=== PATIENT | male | born 1965 | race Caucasian/White ===

== ENCOUNTER 2017-04-07 06:10 | Emergency (ER) | payer BC, OTHER ==
[2017-04-07] MEDS ORDERED: Sodium Chloride 0.9% 10 ML Syringe FLUSH PRN (06:31)
--- NOTE | 2017-04-07 07:17 | EDM.PDOC ---
ED HPI GENERAL MEDICAL PROBLEM - General Chief Complaint: Chest Pain Stated Complaint: COUGH DIARRHEA CHEST PAIN Time Seen by Provider: 04/07/17 06:30 Source of Information: Reports: Patient, RN Notes Reviewed - History of Present Illness INITIAL COMMENTS - FREE TEXT/NARRATIVE: 51-year-old male who became ill yesterday with cough, chills, possible low- grade fever. Has had some mild nasal congestion. He has had body aches with this. Cough been primarily nonproductive, very annoying, difficulty sleeping this last night. He has developed some achy discomfort in his anterior chest and then occasional sharp shooting pains. He has no radiation to shoulder or arm or back. He does not feel short of breath. He has no personal history for hypertension, diabetes or known coronary artery disease. He denies family history for coronary artery disease and also does not smoke. Chest Pain Score (Numeric/FACES): 3 - Related Data Allergies Allergy/AdvReac Type Severity Reaction Status Date / Time No Known Allergies Allergy Verified 04/07/17 06:30 Home Meds: Home Meds atorvaSTATin [Lipitor] 40 mg PO DAILY 04/07/17 [History] Past Medical History Cardiovascular History: Reports: High Cholesterol - Past Surgical History Musculoskeletal Surgical History: Reports: Other (See Below) Other Musculoskeletal Surgeries/Procedures:: "neck surgery years ago" Social & Family History - Family History Family Medical History: Noncontributory - Tobacco Use Smoking Status *Q: Never Smoker Second Hand Smoke Exposure: No - Caffeine Use Caffeine Use: Reports: Coffee - Recreational Drug Use Recreational Drug Use: No ED ROS GENERAL - Review of Systems Review Of Systems: See Below Constitutional: Reports: Fever, Chills (Possible low-grade) HEENT: Reports: Rhinitis (Mild). Denies: Throat Pain Respiratory: Reports: Cough, Sputum (Clear). Denies: Shortness of Breath, Wheezing, Pleuritic Chest Pain Cardiovascular: Reports: Chest Pain (He does have some chest pain with coughing , also achy and sharp shooting discomfort of the chest that comes and goes.) GI/Abdominal: Reports: Diarrhea (He's been having loose stools for the last 24 hours.). Denies: Abdominal Pain, Nausea, Vomiting Musculoskeletal: Reports: Other (Diffuse achiness) Skin: Reports: No Symptoms Neurological: Denies: Headache ED EXAM, GENERAL - Physical Exam Exam: See Below General Appearance: Alert, No Apparent Distress Eye Exam: Bilateral Eye: PERRL Throat/Mouth: Normal Inspection Head: No: Facial Swelling Neck: Supple Respiratory/Chest: No Respiratory Distress, Lungs Clear. No: Rhonchi, Wheezing Cardiovascular: Regular Rate, Rhythm GI/Abdominal: Soft, Non-Tender. No: Guarding Extremities: Normal Inspection, Normal Range of Motion. No: Pedal Edema, Leg Pain Neurological: Alert, Oriented, No Motor/Sensory Deficits Skin Exam: Warm, Dry, Normal Color EKG INTERPRETATION EKG Date: 04/07/17 Rhythm: NSR [place]: Normal P-Wave: Present QRS: Normal ST-T: Normal Course - Vital Signs Last Recorded V/S: Last Vital Signs Temp 98.3 F 04/07/17 06:23 Pulse 81 04/07/17 06:23 Resp 16 04/07/17 06:23 BP 138/78 04/07/17 06:23 Pulse Ox 97 04/07/17 06:23 - Orders/Labs/Meds Orders: Active Orders 24 hr Category Date Time Status EKG 12 Lead [EKG Documentation Completion] [RC] STAT Care 04/07/17 06:31 Active Peripheral IV Care [RC] . DIRECTED Care 04/07/17 06:33 Active Chest 1V Frontal [CR] Stat Exams 04/07/17 06:31 Taken Sodium Chloride 0.9% [Saline Flush] Med 04/07/17 06:31 Active 10 ml FLUSH ASDIRECTED PRN Peripheral IV Insertion Adult [OM.PC] Stat Oth 04/07/17 06:31 Ordered Medication Orders Sodium Chloride (Saline Flush) 10 ml FLUSH ASDIRECTED PRN PRN Reason: Keep Vein Open Last Admin: 04/07/17 06:49 Dose: 10 ml Labs: Laboratory Tests 04/07/17 Range/Units 06:47 Troponin I < 0.017 (0.00-0.056) ng/mL Meds: Medications Generic Name Dose Route Start Last Admin Trade Name Freq PRN Reason Stop Dose Admin Sodium Chloride 10 ml 04/07/17 06:31 04/07/17 06:49 Saline Flush FLUSH 10 ml ASDIRECTED PRN Administration Keep Vein Open - Re-Assessments/Exams Free Text/Narrative Re-Assessment/Exam: 04/07/17 07:18. EKG does not show any acute changes. Chest x-ray normal. 04/07/17 07:46. Troponin did come back normal as expected, discharge instructions as documented Departure - Departure Time of Disposition: 07:35 Disposition: Home, Self-Care 01 Condition: Fair Clinical Impression: Atypical chest pain, Influenza A - Discharge Information Referrals: PCP,None [Primary Care Provider] - Forms: ED Department Discharge Additional Instructions: Rest, drink plenty of water to maintain hydration. Vaporizer or steam as needed. Tylenol or ibuprofen as needed for discomfort or for high fever. Symptoms will gradually start resolving over the next 2-3 days. You will likely have a cough or bronchitis for another week or 2. Follow-up clinic if not much better within 2-3 days as expected, return to ED as needed. - My Orders Last 24 Hours: My Active Orders 04/07/17 06:31 EKG 12 Lead [EKG Documentation Completion] [RC] STAT Chest 1V Frontal [CR] Stat Sodium Chloride 0.9% [Saline Flush] 10 ml FLUSH ASDIRECTED PRN Peripheral IV Insertion Adult [OM.PC] Stat 04/07/17 06:33 Peripheral IV Care [RC] . DIRECTED - Assessment/Plan Last 24 Hours: My Active Orders 04/07/17 06:31 EKG 12 Lead [EKG Documentation Completion] [RC] STAT Chest 1V Frontal [CR] Stat Sodium Chloride 0.9% [Saline Flush] 10 ml FLUSH ASDIRECTED PRN Peripheral IV Insertion Adult [OM.PC] Stat 04/07/17 06:33 Peripheral IV Care [RC] . DIRECTED
--- NOTE | 2017-04-07 08:12 | CR ---
Chest: Frontal view of the chest was obtained. Comparison: No prior chest x-ray. Heart size and mediastinum are normal. Lungs are clear. Bony structures are grossly intact. Impression: 1. Nothing acute is identified on frontal chest x-ray. Diagnostic code #1
== END 2017-04-07 08:10 | disposition home or self-care (01) ==
LOC: JD.ED 06:10
DX: R07.89 Other chest pain (principal); J10.1 Influenza due to other identified influenza virus with other respiratory manifestations; E78.00 Pure hypercholesterolemia, unspecified; Z79.899 Other long term (current) drug therapy
CPT/HCPCS: 36415; 71045; 71045-26; 84484; 87804; 93005; 99285-25; J7050